=== PATIENT | male | born 1985 | race Caucasian/White ===

== ENCOUNTER 2018-12-17 04:33 | Emergency (ER) | payer OTHER ==
[2018-12-17 04:53] VITALS: BP 120/78
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
--- NOTE | 2018-12-17 05:59 | Cat Scan Report ---
PROCEDURE: CT HEAD/BRAIN WO CON TECHNIQUE: Routine axial imaging was obtained of the brain without IV contrast. HISTORY: head injury COMPARISONS: None FINDINGS: There is no evidence of acute stroke or hemorrhage. The ventricular system is appropriate in size and is symmetric. The visualized sinuses are clear. The mastoid air cells are well pneumatized. The calv arium appears intact. IMPRESSION: Within normal limits.. This document is electronically signed by Dereck Worthington MD., December 17 2018 05:57:07 AM ET
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
[2018-12-17] MEDS ORDERED: BOOSTRIX IM ONE (07:00)
== END 2018-12-17 07:00 ==
LOC: ED 04:33
DX: S03.2XXA Dislocation of tooth, initial encounter (principal); F17.200 Nicotine dependence, unspecified, uncomplicated; Y04.8XXA Assault by other bodily force, initial encounter; Y93.89 Activity, other specified; Y92.89 Other specified places as the place of occurrence of the external cause; Y99.8 Other external cause status
CPT/HCPCS: 70450; 70486; 90471; 90715